=== PATIENT | male | born 1985 | race Caucasian/White ===

== ENCOUNTER 2019-07-08 13:23 | Emergency (ER) | payer OTHER ==
[2019-07-08] MEDS ORDERED: NS 0.9% 1000 ML** 1,000 ML IV ONE (13:35)
[2019-07-08] MEDS ORDERED: Ondansetron INJ* 2 MG/ML VIAL IV ONE (13:35)
--- NOTE | 2019-07-08 13:42 | ED ---
Abdominal Pain/Male - HPI Summary HPI Summary: 34 year old M presenting to [facility] complains of epigastric pain rated 7/10 in severity since 4 days ago. Patient reports nausea and vomiting. Patient states that upon eating and swallowing solid food, the food will get stuck in his esophagus, and patient has to cough and/or vomit it out. Patient states he can tolerate fluids. Patient states he is an alcoholic. He states that he is able to swallow and tolerate solid food if he hasn't had alcohol in a few days. Patient states he hasn't had any alcohol in several days, yet the food still doesn't go down. Patient states he recently stopped taking Prilosec. Patient additionally complains of ecchymotic areas on both rib cage areas. Symptoms aggravated by eating solid food. Symptoms alleviated by not drinking alcohol. - History of Current Complaint Stated Complaint: CHEST PAIN/HIGH BP PER PT Hx Obtained From: Patient Onset/Duration: Lasting Days - 4, Still Present Timing: Constant Severity Currently: Moderate Pain Intensity: 7 Pain Scale Used: 0-10 Numeric Location: Epigastric Aggravating Factor(s): Food Alleviating Factor(s): Other: - drinking ETOH Associated Signs And Symptoms: Positive: Nausea, Vomiting, Other - ecchymotic areas on both rib cage areas - Allergies/Home Medications Allergies/Adverse Reactions: Allergies Allergy/AdvReac Type Severity Reaction Status Date / Time No Known Allergies Allergy Verified 07/08/19 13:41 Home Medications: Home Medications Bupropion XL* [Wellbutrin XL *] 300 mg PO DAILY 07/08/19 [History Confirmed ] Naltrexone TAB* 50 mg PO DAILY 07/08/19 [History Confirmed 07/08/19] Omeprazole CAP (NF) [Prilosec CAP* 20 MG] 20 mg PO DAILY 07/08/19 [History Confirmed 07/08/19] PMH/Surg Hx/FS Hx/Imm Hx GI History: Reports: Hx Gastroesophageal Reflux Disease Psychiatric History: Reports: Hx Substance Abuse - alcoholism - Surgical History Surgery Procedure, Year, and Place: none - Family History Known Family History: Negative: Cardiac Disease, Hypertension, Diabetes - Social History Alcohol Use: Daily Alcohol Amount: alcoholism Substance Use Type: Reports: None Hx Tobacco Use: Yes Smoking Status (MU): Current Some Day Smoker Review of Systems Positive: Vomiting, Nausea, Other - epigastric pain Positive: Other - ecchymotic areas on both rib cage areas All Other Systems Reviewed And Are Negative: Yes Physical Exam - Summary Physical Exam Summary: VITAL SIGNS: Reviewed. GENERAL: Patient is a well-developed and nourished male who is actively vomiting. Patient is not in any acute respiratory distress. HEAD AND FACE: Normocephalic and atraumatic. EYES: PERRLA, EOMI x 2, No injected conjunctiva. EARS: Hearing grossly intact. Ear canals and tympanic membranes are WNL. MOUTH: Oropharynx within normal limits. NECK: Supple, trachea is midline, no adenopathy, no JVD. CHEST: Symmetric, no tenderness at palpation. There is bruising in both rib cage areas from coughing. LUNGS: Clear to auscultation bilaterally. No wheezing or crackles. CVS: RRR, S1 and S2 present, no murmurs or gallops appreciated. ABDOMEN: Abdomen is soft and obese, there is mild tenderness in the epigastric area EXTREMITIES: FROM in all major joints, no edema, no cyanosis or clubbing. NEURO: Alert and oriented x 3. No acute neurological deficits. Speech is normal. SKIN: Dry and warm. Triage Information Reviewed: Yes Vital Signs Reviewed: Yes Diagnostics - Laboratory Result Diagrams: 07/08/19 13:50 07/08/19 13:50 Lab Statement: Any lab studies that have been ordered have been reviewed, and results considered in the medical decision making process. - Radiology Chest x-ray Radiology Interpretation Completed By: Radiologist Summary of Radiographic Findings: No evidence for acute intrathoracic disease. ED physician has reviewed this report. - CT Abdomen/Pelvis CT Interpretation Completed By: Radiologist Summary of CT Findings: 1. SMALL HIATAL HERNIA. 2. SPONDYLOLYSIS WITH SPONDYLOLISTHESIS AT L5-S1. 3. NO ACUTE CT PATHOLOGY OF THE VISUALIZED ABDOMEN OR PELVIS. ED physician has reviewed this report. - EKG 1324 Cardiac Rate: Tachycardia - 114 BPM EKG Rhythm: Sinus Tachycardia Summary of EKG Findings: Sinus tachycardia at [address] elevations. T wave inversions in lead 3 Abdominal Pain Male Course/Dx - Course Assessment/Plan: This patient is a 34-year-old male who presents to the emergency room with a chief complaint of epigastric pain, nausea and vomiting, and not feeling well. He also reports that sometimes the pain radiates to the lower abdomen. He reports that he is an alcoholic but he hasnt drink any alcohol since last Friday. Blood tests without any significant abnormality except for hemoglobin 10.5, hematocrit 34, MCV is 72. Creatinine is 1.2, glucose is 135, amylase 28. Urinalysis is negative for UTI. Abdominal and pelvic CT IMPRESSION: 1. SMALL HIATAL HERNIA. 2. SPONDYLOLYSIS WITH SPONDYLOLISTHESIS AT L5-S1. 3. NO ACUTE CT PATHOLOGY OF THE VISUALIZED ABDOMEN OR PELVIS. In the ED course, the patient was given IV fluids, and Zofran for nausea and vomiting and his symptoms have resolved. CXR impression: No acute cardiopulmonary disease. Patient was observed for approximately 4 hours in the ED and the symptoms have resolved. At this point, the patient is feeling better , and he has no complaints. I discussed all the findings and test results with the patient. Patient was instructed to return to the emergency room immediately if any of the symptoms return or worsen. He was explained the possibility of an early abdominal pathology which was not detected at this time despite the physical exam and testing. He understands and agrees. Abdominal exam before discharge: Soft, NT. No signs of distention. BS present. No rebound no guarding , and no masses palpated. Patient is alert and oriented and hemodynamically stable. Patient is to follow up with primary care physician in the next 2 to 3 days. Patient agrees and understands. - Diagnoses Differential Diagnosis/HQI/PQRI: ACS, Appendicitis, Bowel Obstruction, Constipation, Ureteral Stone, Urinary Tract Infection Provider Diagnoses: Epigastric pain, Nausea and vomiting Discharge ED - Sign-Out/Discharge Documenting (check all that apply): Patient Departure - Discharge Patient Received Moderate/Deep Sedation with Procedure: No - Discharge Plan Condition: Stable Disposition: HOME Prescriptions: Ondansetron ODT TAB* [Zofran 4 MG Odt TAB*] 4 mg PO Q8H PRN #10 tab.odt PRN Reason: Nausea Patient Education Materials: Acute Nausea and Vomiting (ED), Epigastric Pain ( ED) Referrals: Garry Tesfaye DO [Primary Care Provider] - 3 Days Additional Instructions: Follow up with your primary care provider in 3 days. RETURN TO EMERGENCY DEPARTMENT FOR NEW OR WORSENING SYMPTOMS. - Billing Disposition and Condition Condition: STABLE Disposition: Home - Attestation Statements Document Initiated by Scribe: Yes Documenting Scribe: Cindy Jauregui Provider For Whom Lawrenceibalma is Documenting (Include Credential): Yong Rowe MD Scribe Attestation: I, Cindy Jauregui, scribed for Yong Rowe MD on 07/12/19 at 1130. Scribe Documentation Reviewed: Yes Provider Attestation: The documentation as recorded by the scribeCindy accurately reflects the service I personally performed and the decisions made by me, Yong Rowe MD Status of Scribe Document: Viewed
[2019-07-08 14:12] LABS: Activated Partial Thrombo Time 30.6 seconds (26.0-38.0); INR 1.04 (0.82-1.09)
[2019-07-08 14:13] LABS: ABS Lymphocytes 0.9 10^3/ul (1.0-4.8); ABS Monocytes 0.7 10^3/ul (0-0.8); ABS Neutrophils 5.2 10^3/ul (1.5-7.7); Eosinophil % 0.7 %; Hematocrit 34 % (42-52); Hemoglobin 10.5 g/dL (14.0-18.0); Lymphocyte % 13.2 %; Mean Corpuscular HGB Conc 31 g/dL (31-36); Mean Corpuscular Hemoglobin 22 pg (27-31); Mean Corpuscular Volume 72 fL (80-94); Mean Platelet Volume 7.7 fL (7.4-10.4); Platelet Count 262 10^3/uL (150-450); Red Blood Count 4.76 10^6 /uL (4.18-5.48); Red Cell Distribution Width 17 % (10-15); White Blood Count 6.9 10^3/uL (3.5-10.8)
[2019-07-08 14:21] LABS: Urine Appearance Clear; Urine Bilirubin Negative (Negative); Urine Blood Negative (Negative); Urine Color Yellow; Urine Glucose Negative (Negative); Urine Ketones Negative (Negative); Urine Nitrite Negative (Negative); Urine Protein Negative (Negative); Urine Specific Gravity 1.002 (1.010-1.030); Urine Urobilinogen Negative (Negative)
[2019-07-08 14:28] LABS: Troponin I 0.01 ng/mL (<0.04)
[2019-07-08 14:35] LABS: Albumin 4.3 g/dL (3.2-5.2); Albumin/Globulin Ratio 1.4 (1-3); BUN/Creatinine Ratio 10.7 (8-20); C Reactive Protein 4.44 mg/L (<8.01); Calcium 9.3 mg/dL (8.6-10.3); EGFR African American 84.1 (>60); EGFR Non-African American 69.5 (>60); Potassium 3.6 mmol/L (3.5-5.0); Total Bilirubin 0.4 mg/dL (0.2-1.0); Total Protein 7.3 g/dL (6.4-8.9)
[2019-07-08] MEDS ORDERED: Iohexol 300* (CONTRAST) 10 ML SDV IV ONE (14:39)
[2019-07-08 17:06] VITALS: BP 149/78
== END 2019-07-08 17:00 | disposition home or self-care (01) ==
LOC: ED 13:23
DX: R10.13 Epigastric pain (principal); R11.2 Nausea with vomiting, unspecified; K44.9 Diaphragmatic hernia without obstruction or gangrene; M43.17 Spondylolisthesis, lumbosacral region; K21.9 Gastro-esophageal reflux disease without esophagitis; F17.200 Nicotine dependence, unspecified, uncomplicated; Z79.899 Other long term (current) drug therapy
CPT/HCPCS: 36415; 71045; 74177; 80053; 81003; 82150; 82550; 83605; 83690; 83880; 84484; 85025; 85610; 85730; 86140; 93005; 96361; 96374; 99283; J2405; Q9967